=== PATIENT | male | born 1975 | race Caucasian/White ===

== ENCOUNTER → 2016-12-02 | Outpatient (CLI) | payer OTHER | END | disposition home or self-care (01) | LOC: RAD 07:08 → EDSTATUS 07:30 | PROVIDERS: ATTEND Specialist | DX: G35 Multiple sclerosis (principal) | CPT/HCPCS: 70551 ==

== ENCOUNTER → 2018-01-06 | Outpatient (CLI) | payer OTHER | END | disposition home or self-care (01) | LOC: CFH 13:08 | PROVIDERS: ATTEND Specialist | DX: M25.78 Osteophyte, vertebrae (principal); M51.34 Other intervertebral disc degeneration, thoracic region | CPT/HCPCS: 72040; 72072; 72100; 72141; 72146; 72148 ==

== ENCOUNTER 2019-11-01 14:42 | Emergency (ER) | payer OTHER ==
[~2019-11-01] VITALS: Ht 185.4 cm; Wt 71.4 kg
--- NOTE | 2019-11-01 15:39 | NUR ---
IV STARTED. LABS DRAWN AND SENT. PT TOLERATED WELL. AT BEDSIDE. PT DENIES ANY NEEDS OR CONCERNS AT THIS TIME, CALL LIGHT IN REACH.
[2019-11-01 15:51] LABS: BASOPHILS # (AUTO) 0.05 x10^3/uL (0-0.1); BASOPHILS % (AUTO) 1 % (0-1); EOSINOPHILS # (AUTO) 0.12 x10^3/uL (0-0.4); EOSINOPHILS % (AUTO) 2 % (1-7); LYMPHOCYTES # (AUTO) 1.69 x10^3/uL (1-3.4); LYMPHOCYTES % (AUTO) 26 % (22-44); MD NO; MEAN CORPUSCULAR HEMOGLOBIN 30.5 pg (27.5-34.5); MEAN CORPUSCULAR HGB CONC 33.3 g/dL (33.2-36.2); MEAN CORPUSCULAR VOLUME 91.4 fL (81-97); MEAN PLATELET VOLUME 8.3 fL (7.4-10.4); MONOCYTES # (AUTO) 0.58 x10^3/uL (0.2-0.8); MONOCYTES % (AUTO) 9 % (2-9); NEUTROPHILS # (AUTO) 4.04 x10^3/uL (1.8-6.8); NEUTROPHILS % (AUTO) 62 % (42-75); PLATELET COUNT 259 x10^3/uL (130-400); RED BLOOD COUNT 5.36 x10^6/uL (4.38-5.82); RED CELL DISTRIBUTION WIDTH 14.4 % (9.4-14.8)
[2019-11-01 16:00] LABS: CHLORIDE 108 mmol/L (98-107)
--- NOTE | 2019-11-01 16:06 | NUR ---
PT RESTING IN BED, AT BEDSIDE. UPDATED ON PLAN OF CARE. VERBALIZES UNDERSTANDING, DENIES ANY FURTHER NEEDS OR CONCERNS AT THIS TIME. CALL LIGHT IN REACH.
[2019-11-01 16:09] LABS: ALANINE AMINOTRANSFERASE 29 U/L (12-78); ALBUMIN 4.4 g/dL (3.4-5.0); ALKALINE PHOSPHATASE 94 U/L (45-117); ANION GAP 8 mmol/L (5-15); BILIRUBIN,TOTAL 0.5 mg/dL (0.2-1.0); C-REACTIVE PROTEIN, QUANT 0.09 mg/dL (0.02-0.49); CALCIUM 8.9 mg/dL (8.5-10.1); CREATININE 0.94 mg/dL (0.7-1.3); TOTAL PROTEIN 7.9 g/dL (6.4-8.2); TROPONIN I < 0.015 ng/mL (0.000-0.045)
[2019-11-01 17:12] VITALS: BP 136/87
--- NOTE | 2019-11-01 17:14 | NUR ---
PT UP TO RESTROOM AND BACK WITH NO ASSISTANCE. AT BEDSIDE. PT UPDATED ON PLAN OF CARE. VERBALIZES UNDERSTANDING, DENIES ANY NEEDS OR CONCERNS AT THIS TIME. CALL LIGHT IN REACH.
== END 2019-11-01 17:54 | disposition home or self-care (01) ==
LOC: ED 17:45
DX: R07.89 Other chest pain (principal); R61 Generalized hyperhidrosis; Z87.891 Personal history of nicotine dependence
CPT/HCPCS: 36415; 71045; 80053; 83690; 84484; 85025; 85651; 86140; 93005; 99285

== ENCOUNTER 2020-09-04 13:06 | Inpatient (IN) | payer OTHER ==
[~2020-09-04] VITALS: Ht 185.4 cm; Wt 72.3 kg
[~2020-09-04 13:06] MED LIST: ARIP5TAB13 PO; BUDE10.2 INH; CARI350T PO; CHOL10003 PO; CYAN100063 PO; PREG300C PO; SILD100T PO; TERI14TA PO; ZOLP6.252 PO
--- NOTE | 2020-09-04 13:55 | NUR ---
biological scientist completed. Pt awaiting MD exam/orders now. Warm blanket provided and call light in reach.
[2020-09-04] MEDS ORDERED: HYDR-1067 PO (13:57)
[2020-09-04] MEDS ORDERED: ZOLP12.52 PO (13:57)
[2020-09-04] MEDS ORDERED: PREG200C PO (13:57)
--- NOTE | 2020-09-04 14:30 | NUR ---
Pt sitting in room. Appears RESERVOIR ENGINEERING CONSULTANT/JOSH has picked up pt but no orders present at this time.
--- NOTE | 2020-09-04 15:00 | NUR ---
Report given to AMBROSE Mayfield and care transferred.
--- NOTE | 2020-09-04 15:03 | NUR ---
REPORT RC'VD FROM FATEMEH BOGGS. PT TO IMAGING VIA [facility].
[2020-09-04 15:17] LABS: BASOPHILS % (AUTO) 1 % (0-1); EOSINOPHILS % (AUTO) 3 % (1-7); LYMPHOCYTES % (AUTO) 33 % (22-44); MD NO; MEAN CORPUSCULAR HEMOGLOBIN 29.7 pg (27.5-34.5); MEAN CORPUSCULAR HGB CONC 33.9 g/dL (33.2-36.2); MEAN PLATELET VOLUME 8.2 fL (7.4-10.4); MONOCYTES % (AUTO) 6 % (2-9); NEUTROPHILS % (AUTO) 57 % (42-75); PLATELET COUNT 257 x10^3/uL (130-400); RED BLOOD COUNT 5.24 x10^6/uL (4.38-5.82); RED CELL DISTRIBUTION WIDTH 14.1 % (9.4-14.8)
[2020-09-04 15:28] LABS: ALBUMIN 4.1 g/dL (3.4-5.0); ANION GAP 4 mmol/L (5-15); CALCIUM 8.9 mg/dL (8.5-10.1); CHLORIDE 113 mmol/L (98-107); CREATININE 0.79 mg/dL (0.7-1.3)
--- NOTE | 2020-09-04 16:54 | NUR ---
PT DOING VIDEO CALL WITH NEUROLOGIST.
[2020-09-04 17:50] VITALS: BP 134/81
[2020-09-04] MEDS ORDERED: ACETAMINOPHEN 325 MG TABLET PO PRN (18:00)
[2020-09-04] MEDS: TIZANIDINE 4MG TABLET PO SCH (18:04)
[2020-09-04] MEDS: HYDROcodone/APAP 5/325 TABLET PO SCH ×2 (18:04→21:19)
[2020-09-04] MEDS: ENOXAPARIN 40 MG/0.4 ML SQ SCH (18:04)
[2020-09-04] MEDS ORDERED: GADOTERATE 7.5 MMOL/15ML SYR ONE (18:14)
[2020-09-04 20:22] VITALS: BP 121/76
[2020-09-04] MEDS: Budesonide/Formoterol Fumarate (Symbicort 160-4.5 Mcg Inhaler INH SCH (21:00)
[2020-09-04] MEDS: ARIPIPRAZOLE 5 MG TABLET PO SCH (21:19)
[2020-09-04] MEDS ORDERED: ZOLPIDEM 10MG TABLET PO ONE (21:30)
[2020-09-05 01:24] VITALS: BP 118/69
[2020-09-05] MEDS: TIZANIDINE 4MG TABLET PO SCH ×3 (02:06→17:49)
[2020-09-05] MEDS: HYDROcodone/APAP 5/325 TABLET PO SCH ×5 (05:14→20:27)
[2020-09-05 05:32] LABS: BASOPHILS % (AUTO) 0 % (0-1); EOSINOPHILS % (AUTO) 0 % (1-7); LYMPHOCYTES % (AUTO) 11 % (22-44); MEAN CORPUSCULAR HEMOGLOBIN 30.5 pg (27.5-34.5); MEAN CORPUSCULAR HGB CONC 34.3 g/dL (33.2-36.2); MEAN PLATELET VOLUME 8.5 fL (7.4-10.4); MONOCYTES % (AUTO) 0 % (2-9); NEUTROPHILS % (AUTO) 88 % (42-75); PLATELET COUNT 295 x10^3/uL (130-400); RED BLOOD COUNT 5.31 x10^6/uL (4.38-5.82); RED CELL DISTRIBUTION WIDTH 14.2 % (9.4-14.8)
[2020-09-05 05:33] LABS: MD NO
[2020-09-05 05:47] LABS: ALBUMIN 4.1 g/dL (3.4-5.0); ANION GAP 7 mmol/L (5-15); CALCIUM 9.4 mg/dL (8.5-10.1); CHLORIDE 112 mmol/L (98-107)
[2020-09-05 05:50] LABS: ALANINE AMINOTRANSFERASE 35 U/L (12-78); ALKALINE PHOSPHATASE 81 U/L (45-117); BILIRUBIN,TOTAL 0.4 mg/dL (0.2-1.0); CREATININE 0.96 mg/dL (0.7-1.3); TOTAL PROTEIN 7.6 g/dL (6.4-8.2)
[2020-09-05 07:19] VITALS: BP 127/77
[2020-09-05] MEDS ORDERED: ACETAMINOPHEN 325 MG TABLET PO PRN (07:30)
[2020-09-05] MEDS ORDERED: TERIFLUNOMIDE HOMEMEDPO SCH (09:00)
[2020-09-05] MEDS ORDERED: ARIPIPRAZOLE 5 MG TABLET PO SCH (09:00)
[2020-09-05] MEDS: Budesonide/Formoterol Fumarate (Symbicort 160-4.5 Mcg Inhaler INH SCH ×2 (09:49→19:15)
[2020-09-05 13:48] VITALS: BP 127/79
[2020-09-05] MEDS: ENOXAPARIN 40 MG/0.4 ML SQ SCH (16:02)
[2020-09-05 18:43] VITALS: BP 136/71
[2020-09-05] MEDS: ARIPIPRAZOLE 5 MG TABLET PO SCH (20:26)
[2020-09-05] MEDS ORDERED: SENNOSIDES 8.6 MG TABLET PO SCH (21:00)
[2020-09-05] MEDS ORDERED: ZOLPIDEM 10MG TABLET PO PRN (21:00)
[2020-09-06 01:05] VITALS: BP 110/68
[2020-09-06] MEDS: TIZANIDINE 4MG TABLET PO SCH ×2 (02:03→10:03)
[2020-09-06] MEDS: HYDROcodone/APAP 5/325 TABLET PO SCH ×2 (05:39→10:04)
[2020-09-06] MEDS: Budesonide/Formoterol Fumarate (Symbicort 160-4.5 Mcg Inhaler INH SCH (07:55)
[2020-09-06 08:19] VITALS: BP 116/76
[2020-09-06] MEDS ORDERED: ACET325T26 PO (09:12)
[2020-09-06] MEDS ORDERED: SENN-99 PO (09:12)
== END 2020-09-06 10:50 | disposition home or self-care (01) | DRG 59 ==
LOC: ED 16:15 → EDIP 16:16 → ED 16:32 → 3N 17:07
PROVIDERS: ADMIT Internal Medicine; ATTEND Internal Medicine
DX: G35 Multiple sclerosis (principal); F10.99 Alcohol use, unspecified with unspecified alcohol-induced disorder; G89.4 Chronic pain syndrome; Z80.0 Family history of malignant neoplasm of digestive organs; Z90.49 Acquired absence of other specified parts of digestive tract; Z87.891 Personal history of nicotine dependence; F32.9 Major depressive disorder, single episode, unspecified; G47.00 Insomnia, unspecified; Z91.09 Other allergy status, other than to drugs and biological substances; H53.8 Other visual disturbances; F12.10 Cannabis abuse, uncomplicated
CPT/HCPCS: 36415; 70553; 72156; 72157; 80048; 80053; 82040; 83735; 84100; 85025; 96374; G0378; J2930; A9575

== ENCOUNTER 2020-10-29 09:46 | Emergency (ER) | payer OTHER ==
[~2020-10-29] VITALS: Ht 185.4 cm; Wt 68.4 kg
[~2020-10-29 09:46] MED LIST changes: +ACET325T26 PO; +HYDR-2214 PO; +PREG200C PO; +SENN-99 PO; +ZOLP12.52 PO
--- NOTE | 2020-10-29 10:13 | NUR ---
FELL FRIDAY R/T MS WHEN LOSS FXN OF LEGS, HIT HEAD/SHOULDER HAD EMESIS NO LOC. COUGH/PHLEGM BEGAN ON FRI, W/ FEVER 101, AND HAS NOT HAD A FEVER SINCE FRI. WENT TO AND THEY SENT PT HERE.
[2020-10-29] MEDS ORDERED: OFAT20PE SQ (10:27)
[2020-10-29] MEDS ORDERED: TIZA6CAP PO (10:27)
--- NOTE | 2020-10-29 10:28 | NUR ---
PT VSS, DENIES NEEDS. CALL LIGHT W/IN REACH.
--- NOTE | 2020-10-29 10:53 | NUR ---
PRCEPTOR RN: PT IN RADIOLOGY.
--- NOTE | 2020-10-29 11:05 | NUR ---
PT TO CT
--- NOTE | 2020-10-29 11:15 | NUR ---
PT BACK FROM CT. HOOKED UP TO MACHINE, VSS. PT DENIES ANY NEED. CALL LIGHT W/IN REACH.
[2020-10-29 11:51] VITALS: BP 105/68
--- NOTE | 2020-10-29 11:52 | NUR ---
Patient and given discharge instructions and they have confirmed that they understand the instructions. Patient ambulatory steady gait with fww.
== END 2020-10-29 12:06 | disposition home or self-care (01) ==
LOC: ED 11:43
DX: S40.012A Contusion of left shoulder, initial encounter (principal); S09.90XA Unspecified injury of head, initial encounter; J32.0 Chronic maxillary sinusitis; J18.0 Bronchopneumonia, unspecified organism; J18.9 Pneumonia, unspecified organism; B96.89 Other specified bacterial agents as the cause of diseases classified elsewhere; F17.200 Nicotine dependence, unspecified, uncomplicated; R94.31 Abnormal electrocardiogram [ECG] [EKG]; W18.30XA Fall on same level, unspecified, initial encounter; Y93.89 Activity, other specified; Y92.89 Other specified places as the place of occurrence of the external cause; Y99.8 Other external cause status
CPT/HCPCS: 70450; 71045; 93005; 99284